=== PATIENT | male | born 1965 | race Caucasian/White ===

== ENCOUNTER 2017-05-06 14:48 | Emergency (ER) | payer OTHER, BC ==
[~2017-05-06] VITALS: Ht 180.3 cm; Wt 83.0 kg
[~2017-05-06 14:48] MED LIST: AMARYL4 MG PO; IBUPROFEN600 MG PO; METFORMIN500 M1 PO; TIZANIDINE4 MG PO
[2017-05-06 16:08] VITALS: BP 140/89
== END 2017-05-06 16:06 | disposition home or self-care (01) | DRG 556 ==
LOC: ED 14:48
DX: M25.531 Pain in right wrist (principal); M79.631 Pain in right forearm; I10 Essential (primary) hypertension; E11.9 Type 2 diabetes mellitus without complications; F17.290 Nicotine dependence, other tobacco product, uncomplicated; I49.3 Ventricular premature depolarization; V67.0XXA Driver of heavy transport vehicle injured in collision with fixed or stationary object in nontraffic accident, initial encounter; Y93.H9 Activity, other involving exterior property and land maintenance, building and construction; Z91.14 Patient's other noncompliance with medication regimen